=== PATIENT | female | born 1970 | race Two or more races ===

== ENCOUNTER 2024-01-06 18:47 | Emergency (ER) | payer OTHER ==
[~2024-01-06] VITALS: Ht 180.3 cm; Wt 86.2 kg
[~2024-01-06 18:47] MED LIST: PROTONIX40 MG PO; PROVENTIL HFA6.7 GM IH; PROVENTIL3 ML/2.5 M IH; TUSSIN100 MG/51 PO; ZANTAC300 MG PO
[2024-01-06 19:24] VITALS: BP 135/83; O2SAT 100
[2024-01-06] MEDS ORDERED: HALOPERIDOL LACTATE 5 MG/ML AMPUL IM STA ×2 (19:57→20:13)
[2024-01-06] MEDS ORDERED: DIPHENHYDRAMINE HCL 50 MG/ML VIAL 1ML IM STA (19:58)
[2024-01-06] MEDS ORDERED: METOCLOPRAMIDE HCL 5 MG/ML VIAL IM STA (19:58)
[2024-01-06] MEDS ORDERED: FAMOtidine 10 MG/ML (4ML VIAL) IV PUSH STA (19:59)
== END 2024-01-06 21:58 | disposition home or self-care (01) ==
LOC: ER 18:49
DX: G43.909 Migraine, unspecified, not intractable, without status migrainosus (principal); Z88.0 Allergy status to penicillin; Z88.6 Allergy status to analgesic agent; Z88.8 Allergy status to other drugs, medicaments and biological substances